=== PATIENT | female | born 1955 | race Two or more races ===

== ENCOUNTER 2017-05-08 11:28 | Emergency (ER) | payer BC ==
[~2017-05-08] VITALS: Ht 157.5 cm; Wt 63.5 kg
[2017-05-08 11:30] VITALS: BP 144/88
[2017-05-08] MEDS ORDERED: LORazepam 0.5 MG TAB PO ONE (11:55)
[2017-05-08] MEDS ORDERED: ONDANSETRON 4 MG ODT PO ONE (11:55)
[2017-05-08] MEDS ORDERED: ACETAMINOPHEN EXTRA STRENGTH 500 MG TAB PO ONE (11:55)
[2017-05-08 12:48] LABS: BASOPHILS # (AUTO) 0.3 K/uL (0.00-0.22); BASOPHILS % (AUTO) 3.3 % (0.0-2.0); EOSINOPHILS # (AUTO) 0.1 K/uL (0-0.4); EOSINOPHILS % (AUTO) 1.6 % (0.0-4.0); HEMATOCRIT 43.5 % (36-48); HEMOGLOBIN 14.5 g/dL (12.0-16.0); LYMPHOCYTES % (AUTO) 25.5 % (20.5-51.1); MEAN CORPUSCULAR HEMOGLOBIN 28 pg (27-31); MEAN CORPUSCULAR HGB CONC 33 g/dL (33-37); MEAN CORPUSCULAR VOLUME 85 fL (80-94); MONOCYTES # (AUTO) 0.6 K/uL (0.8-1.0); MONOCYTES % (AUTO) 7.6 % (1.7-9.3); NEUTROPHILS # (AUTO) 4.7 K/uL (1.8-7.7); PLATELET COUNT (AUTO) 176 K/uL (140-450); RED BLOOD CELL COUNT(AUTO) 5.14 MIL/uL (4.20-5.40); RED CELL DISTRIBUTION WIDTH 13.1 % (11.6-13.7); WHITE BLOOD COUNT (AUTO) 7.7 K/uL (4.8-10.8)
[2017-05-08 13:02] LABS: ANION GAP 9.3 (8-16); CARBON DIOXIDE 28.3 mmol/L (21-32); CREATININE 0.8 mg/dL (0.6-1.3); POTASSIUM 3.6 mmol/L (3.5-5.1)
[2017-05-08 13:04] LABS: PROTHROMBIN TIME 10.2 secs (10.8-13.4)
[2017-05-08 13:08] LABS: ALBUMIN 3.9 g/dL (3.4-5.0); TOTAL BILIRUBIN 0.6 mg/dL (0.0-1.0)
[2017-05-08 13:30] VITALS: BP 104/64
== END 2017-05-08 13:30 | disposition home or self-care (01) ==
LOC: MED 11:28
DX: R51 Headache (principal); F41.9 Anxiety disorder, unspecified
CPT/HCPCS: 36415; 70450; 80053; 85025; 85610; 85730; 99285; S0119